=== PATIENT | male | born 1990 | race African-American/Black ===

== ENCOUNTER 2020-02-10 01:11 | Emergency (ER) | payer SELFPAY ==
[~2020-02-10] VITALS: Ht 185.4 cm; Wt 150.4 kg
[2020-02-10 01:19] VITALS: BP 166/101
[2020-02-10] MEDS ORDERED: OXYcodone/APAP 5/325MG TABLET PO ONE (02:00)
[2020-02-10] MEDS ORDERED: AMOXICILLIN 500 MG CAPSULE ONE (02:18)
[2020-02-10] MEDS ORDERED: OXYcodone/APAP 5/325MG TABLET ONE (02:18)
--- NOTE | 2020-02-10 02:27 | NUR ---
Assist RN - Pt d/c'd to self care. Pt medicated per MAR at time of d/c. Pt alert, oriented and ambulatory. NAD. Pt educated on OTC meds, prescription, follow-up, s/sx to return, and home care. Pt VU. Pt ambulated out of ER.
[2020-02-10] MEDS ORDERED: AMOXICILLIN 500 MG CAPSULE PO ONE (02:30)
== END 2020-02-10 02:30 | disposition home or self-care (01) ==
LOC: ED 02:00
DX: K04.7 Periapical abscess without sinus (principal)
CPT/HCPCS: 41800; 99284